=== PATIENT | male | born 1940 | race Caucasian/White ===

== ENCOUNTER → 2017-03-08 | Outpatient (CLI) | payer MEDICARE ==
[~2017-03-08] MED LIST: ALBUTEROL20 ml INH; ALLERGY RELIEF25 MG PO; ARANESP100 MCG/0. INJ; ASPIRIN EC81 M1 PO; BACLOFEN10 MG PO; BUMEX2 MG PO; CALCITRIOL0.25 MC1; CATAPRES0.3 MG PO; CLOPIDOGREL BIS75 MG PO; DOCUSATE SODIU1 EACH PO; FERRO-TIME325 MG PO; FISH OIL 1,0001 EACH PO; GLUCAGON HCL1 MG; HYDRALAZINE HC100 MG PO; HYTRIN10 MG PO; IMDUR-ER60 MG; LANTUS100 UNITS/; LANTUS100 UNITS/ SUBQ; LIPITOR20 MG PO; LYRICA25 MG PO; MULTIPLE VITAM1 EAC1 PO; NIFEDIPINE ER60 M1 PO; NITROGLYCERIN0.4 MG SL; NOVOLOG100 U/M2; OMEPRAZOLE20 M2 PO; PERCOCET5/325 PO; POLYETHYLENE GLY1 GM MC; RENVELA800 MG; SERTRALINE HCL100 MG PO; SODIUM BICARBO650 MG PO; TOPROL XL100 MG PO; VITAMIN D3400 UNI1 PO
--- NOTE | ~2017-03-08 | US146 ---
[facility] A Service of [facility] RADIOLOGY TEXT RESULTS PATIENT: ANY THOMAS LOCATION: CNIV : 41 UNIT #: [id number] AGE: [address]: Shanice De Leon SEX: M ORDER DR: [id number] [facility] [address] [place], [place] [address] [id number] O MR#: [id number] Acc #: [id number] NAME: ANY THOMAS : 1940 SEX: M STUDY DATE/TIME: 03/08/2017 9:47 UNIT: CNIV ROOM: STUDY DESCRIPTION: Vein Map Hemodial Access Attending Physician: Shanice De Leon A.P.R.N. Referring Physician: Juan Manuel Barfield M.D. Ordering Physician: Shanice De Leon A.P.R.N. Primary Care Physician: Valentin Hobbs M.D. MEDICAL IMAGING REPORT This report is preliminary unless electronic signature is present EXAM Bilateral upper extremity venous mapping HISTORY Renal disease FINDINGS The right cephalic and basilic veins are noted to be widely patent throughout their course without evidence of thrombosis. The left basilic vein appears to be widely patent throughout its course without evidence of thrombosis. The left cephalic vein noted from the upper arm to the antecubital fossa is noted to be thrombosed without evidence of flow. The right cephalic vein is 3.8 mm proximal arm, 4.1 mm mid arm, 4.2 mm distal arm, 4 mm at the elbow, 11 mm at the proximal forearm, 2 mm at the mid forearm, and 2.3 mm distal forearm. The right basilic vein is 8.3 mm proximal arm, 5.7 mm mid arm, 5.1 mm distal arm, 4.3 mm at the elbow, 2 mm at the proximal forearm, 2.2 mm midforearm, and 2.6 mm distal forearm. The left cephalic vein is noted to be thrombosed. The left basilic vein is 3.9 mm proximal arm, 4 mm mid arm, 4.1 mm distal arm, 4.1 mm at the elbow, 1.5 mm proximal forearm, 1.5 mm midforearm and 0.7 mm distal forearm. The right and left great toe arteries are widely patent with normal waveforms. IMPRESSION 1. Positive superficial venous thrombosis of the left cephalic vein fistula, but no other superficial venous thrombosis is noted. 2. The right cephalic vein is adequate for a hemodialysis access from the proximal arm to the elbow, and the right basilic vein is adequate [facility] A Service of [facility] RADIOLOGY TEXT RESULTS PATIENT: ANY THOMAS LOCATION: CNIV : 41 UNIT #: [id number] AGE: [address]: Shanice De Leon SEX: M ORDER DR: for a hemodialysis access from the proximal arm to the elbow. 3. The left basilic vein is adequate for use as hemodialysis access from the proximal arm to the elbow. Dictated by... Juan Manuel Barfield M.D. THIS IS AN ELECTRONICALLY VERIFIED REPORT Juan Manuel Barfield M.D. at 03/13/2017 7:59 AM Flex TD: 03/09/2017 16:52 JOB #: [id number] MEDICAL IMAGING REPORT Page 1 of 1 COPY
--- NOTE | ~2017-03-08 | US37 ---
[facility] A Service of [facility] RADIOLOGY TEXT RESULTS PATIENT: ANY THOMAS LOCATION: CNIV : 41 UNIT #: [id number] AGE: [address]: Shanice De Leon SEX: M ORDER DR: [id number] [facility] [address] [place], [place] [address] [id number] O MR#: [id number] [facility] #: [id number] NAME: ANY THOMAS : 1940 SEX: M STUDY DATE/TIME: 03/08/2017 9:34 UNIT: CNIV ROOM: STUDY DESCRIPTION: US Carotid W/Doppler Bilateral Attending Physician: Shanice De Leon A.P.R.N. Referring Physician: Juan Manuel Barfield M.D. Ordering Physician: Shanice De Leon A.P.R.N. Primary Care Physician: Valentin Hobbs M.D. MEDICAL IMAGING REPORT This report is preliminary unless electronic signature is present DATE OF EXAM 03/08/17 REFERRING PROVIDER Shanice De Leon REASON FOR EXAM Carotid stenosis. EXAM Bilateral carotid Doppler. FINDINGS The right common carotid, internal carotid and external carotid arteries are patent with mild diffuse plaque throughout. The velocity of the common carotid artery is 51 cm/sec. Peak systolic velocity of the right proximal internal carotid artery is 56 cm/sec with an end-diastolic velocity of 16 cm/sec for an ICA:CCA ratio of 1.1. External carotid artery with a velocity of 79 cm/sec. The vertebral artery is visualized with antegrade flow. The left common carotid, internal carotid and external carotid arteries are patent with mild diffuse plaque throughout. The velocity of the common carotid artery is 73 cm/sec. Peak systolic velocity of the left proximal internal carotid artery is 57 cm/sec with an end-diastolic velocity of 14 cm/sec for an ICA:CCA ratio of 0.78. External carotid artery velocity of 94 cm/sec. The vertebral artery is visualized with antegrade flow. IMPRESSION 1. Less than 50% stenosis of the right and left internal carotid arteries. [facility] A Service of [facility] RADIOLOGY TEXT RESULTS PATIENT: [facility] THOMAS [id number] UNIT #: [id number] AGE: [address]: Shanice De Leon SEX: M ORDER DR: 2. No stenosis of the external carotid arteries. 3. Antegrade flow of the vertebral arteries. Dictated by... Juan Manuel Barfield M.D. THIS IS AN ELECTRONICALLY VERIFIED REPORT Juan Manuel Barfield M.D. at 03/13/2017 7:59 AM DEVEN/zora TD: 03/09/2017 17:09 JOB #: [id number] MEDICAL IMAGING REPORT Page 1 of 1 COPY
== END | disposition home or self-care (01) ==
LOC: CNIV 08:53
DX: T82.590A Other mechanical complication of surgically created arteriovenous fistula, initial encounter (principal); I65.23 Occlusion and stenosis of bilateral carotid arteries; I82.812 Embolism and thrombosis of superficial veins of left lower extremity
CPT/HCPCS: 93880; G0365

== ENCOUNTER → 2017-03-15 | Day surgery (SDC) | payer MEDICARE ==
--- NOTE | ~2017-03-15 | OR ---
Unit #: [id number] #: [id number] Patient: ANY THOMAS [id number] [facility] [place], [place] [address] [id number] O MR#: [id number] NAME: ANY THOMAS. ROOM: Date of Procedure: 03/15/2017 Admission Date: 03/15/2017 Surgeon: Juan Manuel Barfield M.D. : 1940 Attending Physician: Juan Manuel Barfield M.D. Primary Care Physician: Generic Doctor Not In System OPERATIVE REPORT EKG MONITOR Gabriel Ospina. PREOPERATIVE DIAGNOSIS End-stage renal disease, on dialysis. POSTOPERATIVE DIAGNOSIS End-stage renal disease, on dialysis. PROCEDURE PERFORMED Creation of a right brachiocephalic arteriovenous fistula. ANESTHESIA MAC. COMPLICATION None. ESTIMATED BLOOD LOSS 15 mL. SPECIMEN None. INDICATIONS FOR PROCEDURE The patient is a 76-year-old gentleman with a history of end-stage renal disease, currently gets dialysis via tunneled catheter. A previously placed left arm fistula has thrombosed. Based on vein mapping, he was recommended a right brachiocephalic fistula. He understood the planned procedure including the risks, benefits, and wishes to proceed. DESCRIPTION OF PROCEDURE The patient was taken to the operating room and placed on the operating table in supine position. Following MAC anesthesia, the patient's right arm circumferentially was prepped and draped in normal standard manner. Using ultrasound, the cephalic vein was mapped at the antecubital fossa and lower arm as well as mapping of the brachial artery. 1% lidocaine was infused just below the antecubital fossa in a transverse fashion. An incision was then created and taken down through subcutaneous tissues with cautery. Dissection identified the cephalic vein, which was dissected free circumferentially along its entire length through the antecubital fossa and appeared to be quite adequate for use as a fistula, measuring Unit #: [id number] #: [id number] Patient: ANY THOMAS roughly 3.5 to 4 mm in diameter. Dissection along the brachial artery pulsation was performed in a small branch or high bifurcated artery was identified first. It was dissected free, measured roughly 2 mm. Further evaluation deeply identified a larger brachial artery which seemed to be the brachial artery proper which was then dissected free circumferentially and looped with vessel loops. The patient was given heparin 100 units/kg and allowed to circulate for 3 minutes. All side branches to the cephalic vein were then doubly ligated and transected. The distal cephalic vein was then clamped and the vein was transected. The distal stump was tied with a 3-0 silk tie. The vein was evaluated and then flushed with heparinized saline and distended excellently. It was brought over to the brachial artery and the brachial artery location for anastomosis was identified. Clamps were placed proximal and distally on the brachial artery and longitudinal arteriotomy was created and extended with Elizabeth scissors. The cephalic vein was then beveled slightly and anastomosis to the brachial artery was made with a 6-0 Prolene suture. Upon completion, all clamps were removed and flow was restored. Easily palpable thrill was noted throughout the fistula at the antecubital fossa specifically and good signals were noted in the arm. There was a palpable radial pulse at the wrist. The heparin was reversed with protamine 30 mg. No bleeding was then noted. The wound was closed in 2 layers, the running subcutaneous 3-0 Vicryl suture and 4-0 Monocryl suture for skin. The incision was washed and dressing was applied. The procedure was terminated. The patient tolerated the procedure well and was taken to the recovery room in stable condition. All needle, sponge, and instrument counts were correct at the end of the case. Dictated by... Bettina Hernandez/sharda TD: 03/16/2017 02:26 JOB #: [id number] OPERATIVE REPORT Page 1 of 1 X Juan Manuel Barfield MD X PROCEDURE OPERATIVE NOTE
--- NOTE | ~2017-03-15 | EKG ---
PATIENT: ANY THOMAS UNIT #: [id number] Ventricular Rate: 53 BPM Atrial Rate: 53 BPM P-R Interval: 184 ms QRS Duration: 156 ms Q-T Interval: 562 ms QTC Calculation(Bezet): 527 ms P Brokaw: 18 degrees Calculated R Brokaw: 30 degrees Calculated T Brokaw: 32 degrees Diagnosis Line: Sinus bradycardia Diagnosis Line: Right bundle branch block Diagnosis Line: Abnormal ECG Diagnosis Line: When compared with ECG of 01-AUG-2016 07:24, Diagnosis Line: No significant change was found Diagnosis Line: Confirmed by ADELSO TUCKER MD ([id number]) on Diagnosis Line: 03/15/2017 4:15:23 PM INTERPRETING MD: MAVIS
[2017-03-15 07:18] LABS: BASOPHIL# 0.1 X10e3 (0-0.3); BASOPHIL% 0.9 % (0-2.5); EOSINOPHIL# 0.2 X10e3 (0-0.7); EOSINOPHIL% 2.7 % (0.0-7.0); HEMATOCRIT 35.8 % (38.0-50.0); HEMOGLOBIN 11.3 gm/dL (13.0-16.0); LYMPHOCYTE# 3.3 X10e3 (1.0-3.5); LYMPHOCYTE% 41.5 % (17.0-45.0); MEAN CELL VOLUME 83.1 FL (83-96); MEAN CORPUSCULAR HEMOGLOBIN 26.4 PG (28-34); MEAN CORPUSCULAR HGB CONC 31.7 g/dL (30-36); MEAN PLATELET VOLUME 8.8 FL (6.5-11.5); MONOCYTE# 0.6 X10e3 (0-1.0); MONOCYTE% 7.9 % (3.0-12.0); NEUTROPHIL# 3.8 X10e3 (1.5-7.1); PLATELET COUNT 197 X10e3 (140-420); RED CELL DISTRIBUTION WIDTH 14.1 % (11.0-15.5)
[2017-03-15 07:40] LABS: DIFF IND NO
[2017-03-15 07:48] LABS: BUN/CREATININE RATIO 11.29; CALCIUM SERUM 8.8 mg/dL (8.4-10.2); CREATININE SERUM 3.1 mg/dL (0.6-1.4); GLOM FILT RATE Estimated 18.7 mL/min (>60); POTASSIUM 5.1 mmol/L (3.5-5.1)
[2017-03-15 08:09] LABS: PROTHROMBIN TIME (PATIENT) 10.8 SECONDS (10.0-11.7)
== END | disposition home or self-care (01) ==
LOC: CSUR 06:17
PROVIDERS: Surgery Vascular Surgery
DX: I12.0 Hypertensive chronic kidney disease with stage 5 chronic kidney disease or end stage renal disease (principal); N18.6 End stage renal disease; T82.868A Thrombosis due to vascular prosthetic devices, implants and grafts, initial encounter; I25.10 Atherosclerotic heart disease of native coronary artery without angina pectoris; I10 Essential (primary) hypertension; E11.22 Type 2 diabetes mellitus with diabetic chronic kidney disease; I25.2 Old myocardial infarction; Z79.4 Long term (current) use of insulin; Z98.890 Other specified postprocedural states; Z99.2 Dependence on renal dialysis; Z88.0 Allergy status to penicillin; Z88.5 Allergy status to narcotic agent; Z88.8 Allergy status to other drugs, medicaments and biological substances; Z90.49 Acquired absence of other specified parts of digestive tract; Z95.5 Presence of coronary angioplasty implant and graft; Z79.899 Other long term (current) drug therapy; Z79.82 Long term (current) use of aspirin
CPT/HCPCS: 80048; 82947; 85025; 85610; 93005; J1644; J2250; J2720; J2795; J3010; J3370